=== PATIENT | female | born 1945 | race Asian ===

== ENCOUNTER → 2022-04-25 | Outpatient (CLI) | payer MEDICARE, OTHER ==
[~2022-04-25] VITALS: Ht 149.9 cm; Wt 49.5 kg
[2022-04-25 14:24] VITALS: BP 118/63
== END | disposition home or self-care (01) ==
LOC: SRCNTR 13:49 → EDSTATUS 14:30
PROVIDERS: ATTEND Internal Medicine Infectious Disease
DX: I10 Essential (primary) hypertension (principal); D64.9 Anemia, unspecified; E78.5 Hyperlipidemia, unspecified; M81.0 Age-related osteoporosis without current pathological fracture; R00.1 Bradycardia, unspecified; M06.9 Rheumatoid arthritis, unspecified; R63.4 Abnormal weight loss; Z22.7 Latent tuberculosis
CPT/HCPCS: G0463; Z7500

== ENCOUNTER → 2022-06-16 | Outpatient (CLI) | payer MEDICARE, OTHER | END | disposition home or self-care (01) | LOC: RADMN 13:17 | PROVIDERS: ATTEND Internal Medicine Infectious Disease | DX: J98.4 Other disorders of lung (principal); Z22.7 Latent tuberculosis | CPT/HCPCS: 71046 ==